=== PATIENT | female | born 1990 | race Caucasian/White ===

== ENCOUNTER 2017-05-23 07:38 | Emergency (ER) | payer MEDICAID, OTHER ==
[~2017-05-23] VITALS: Ht 170.2 cm; Wt 67.1 kg
[2017-05-23 08:02] VITALS: BP 135/82
== END 2017-05-23 09:02 | disposition left against medical advice (07) ==
LOC: ER 07:38
DX: F19.959 Other psychoactive substance use, unspecified with psychoactive substance-induced psychotic disorder, unspecified (principal); B88.8 Other specified infestations